=== PATIENT | male | born 1985 | race Caucasian/White ===

== ENCOUNTER 2022-01-30 10:56 | Outpatient (CLI) | payer BC | END 2022-01-30 10:57 | disposition EMS.NT | LOC: EMS 10:56 | DX: R42 Dizziness and giddiness (principal); Z94.0 Kidney transplant status ==

== ENCOUNTER 2022-08-18 19:45 | Emergency (ER) | payer MEDICARE, BC ==
--- NOTE | 2022-08-18 20:13 | ED Physician Documentation ---
History of Present Illness - Stated complaint Stated Complaint: CHEST PX/BACK PX - Chief complaint Chief Complaint: General - Additonal information Additional information: 37-year-old male presents to the emergency department for evaluation of right- sided chest pain and chest pressure. He has a history of renal transplant in 2019. Historically he had an AV fistula in his left lower forearm. Today while at work he accidentally banged his left arm forcefully on some pipe venting. About 430 this afternoon he developed some chest pain, pressure and diaphoresis. He is unsure if hitting the fistula is contributory to the chest pain. However he states that about 9 months ago the fistula collapsed and he lost the thrill. Patient is followed by [facility] nephrology. PD PAST MEDICAL HISTORY - Past Medical History Past Medical History: Yes - Past Surgical History Past Surgical History: Yes - Allergies Allergies/Adverse Reactions: Allergies Allergy/AdvReac Type Severity Reaction Status Date / Time No Known Drug Allergies Allergy Verified 08/18/22 19:56 - Social History Does the pt smoke?: No Smoking Status: Never smoker Does the pt drink ETOH?: No Does the pt have substance abuse?: No - Immunizations Immunizations are current?: Yes PD ED PE NORMAL - General General: Alert and oriented X 3, No acute distress - HEENT HEENT: Atraumatic - Cardiac Cardiac: RRR, Strong equal pulses. No: No murmur (3/6 systolic murmur) - Respiratory Respiratory: No respiratory distress, Clear bilaterally - Abdomen Abdomen: Normal bowel sounds, Soft, Non tender - Extremities Extremities: No deformity, No tenderness to palpate, Normal ROM s pain, Other (No bruit or thrill is felt on the left lower forearm at the site of the fistula. 2+ radial pulse. Neurovascularly intact. Normal movement of the hand wrist and forearm) - Neuro Neuro: Alert and oriented X 3, systems auditor 2-12 intact Eye Opening: Spontaneous Motor: Obeys Commands Verbal: Oriented GCS Score: 15 Results - Vitals Vitals: Vital Signs - 24 hr 08/18/22 19:51 Temperature 36.4 C L Heart Rate 81 Respiratory 21 Rate Blood Pressure 161/94 H O2 Saturation 96 Oxygen O2 Source Room air - EKG (time done) 2023 EKG releavant findings:: EKG personally interpreted by author of this note. Relevant findings are: Rate: Rate (enter#) (85) Rhythm: NSR [place]: Normal Intervals: Normal [place]. No: Prolonged QT QRS: Normal Ischemia: ST elevation c/w repol Compare to prior EKG: Old EKG unavailable Computer interpretation: Agree with computer - Labs Labs: Laboratory Tests 08/18/22 08/18/22 08/18/22 20:26 20:26 20:26 WBC 7.4 RBC 5.62 Hgb 17.3 Hct 50.3 MCV 89.5 MCH 30.8 MCHC 34.4 RDW 12.3 Plt Count 258 MPV 10.5 Neut # (Auto) 4.5 Lymph # (Auto) 2.0 [place] # (Auto) 0.6 Eos # (Auto) 0.1 Baso # (Auto) 0.1 Absolute Nucleated RBC 0.00 Nucleated RBC % 0.0 PT 10.7 INR 1.0 D-Dimer Cancelled Sodium 138 Potassium 4.4 Chloride 103 Carbon Dioxide 28 Anion Gap 7.0 BUN 23 H Creatinine 1.3 H Estimated GFR (MDRD) 62 L Glucose 181 H Calcium 10.2 Total Bilirubin 1.3 H AST 33 ALT 42 Alkaline Phosphatase 118 Troponin I High Sens Total Protein 7.2 Albumin 4.5 Globulin 2.7 Albumin/Globulin Ratio 1.7 Lipase 38 08/18/22 20:26 WBC RBC Hgb Hct MCV MCH MCHC RDW Plt Count MPV Neut # (Auto) Lymph # (Auto) [place] # (Auto) Eos # (Auto) Baso # (Auto) Absolute Nucleated RBC Nucleated RBC % PT INR D-Dimer Sodium Potassium Chloride Carbon Dioxide Anion Gap BUN Creatinine Estimated GFR (MDRD) Glucose Calcium Total Bilirubin AST ALT Alkaline Phosphatase Troponin I High Sens 8.5 Total Protein Albumin Globulin Albumin/Globulin Ratio Lipase - Rads (name of study) cxr Relevant Findings:: EMP independent interpretation of test (No acute cardiopulmonary process) PD Medical Decision Making - ED course Complexity details: reviewed results, re-evaluated patient, considered differential, d/w patient ED course: 37-year-old male presented to the emergency department for evaluation of right- sided chest pain and pressure that began about 430 this afternoon. He did endorse some pain with deep breaths. Patient has past medical history most significant for bilateral renal transplants for which she is taking immune suppressants. On presentation to the emergency department he is alert and well-appearing. He does endorse some mild pain at rest. He was placed on monitor technician and found to be in sinus rhythm. Room air saturations were normal. He appeared to be in no distress. We did obtain a CBC, electrolytes and high-sensitivity troponin. Do see a very mild increase in his BUN and creatinine though given the history of renal transplant and a normal GFR this is likely his baseline. There are no previous labs for comparison. His EKG is interpreted by myself shows no ischemic findings. High-sensitivity troponin obtained 4 hours after the onset of pain was also negative. Chest x- ray showed no findings to suggest pneumonia, pneumothorax or pleural effusion. I discussed with patient and his the possibility that this pleuritic component of chest pain could be due to a pulmonary embolism. I initially offered D-dimer testing. However unfortunately the patient was found to be too lipemic in order for us to complete the D-dimer In our laboratory today. However the patient's pretest probability for a PE was felt to be low based on Wells and PERC criteria. I did have a lengthy discussion with patient and his at the bedside about simply obtaining a CT angio to formally rule out a PE but after discussion the patient felt that this was not necessary today and he would like to be discharged home. We discussed that if the symptoms were to suddenly worsen or not improve he would return immediately to the ER. I discussed the concerning finding of the lipemia inhibiting her ability to obtain a D-dimer and recommended he have triglycerides checked as an outpatient. I also made the recommendation for outpatient stress test and echocardiogram given he is high risk for early coronary artery disease in the setting of immune suppression. He is discharged home in stable condition Departure - Departure Disposition: 01 Home, Self Care Clinical Impression: History of renal transplant Chest pain Qualifiers: Chest pain type: unspecified Qualified Code(s): R07.9 - Chest pain, unspecified Follow-Up: TRIPP DON DO [Primary Care Provider] - Comments: As discussed at the bedside you came to the emergency department today because you developed some chest pain on the right side of your chest. Your EKG today did not show any worrisome findings. Your troponin, chemical that can be released during heart attacks was also normal. Your chest x-ray showed no signs of pneumonia, cardiac enlargement or fluid around the lungs. We did discuss the possibility of pulmonary embolism as a cause of your chest pain. We attempted to run a lab called a D-dimer which can help providers assess the risk of you developing abnormal blood clots. Our pre- test probability of you having a pulmonary embolus was however felt to be low. However this lab could not be completed in the emergency department as lab rhetorically personnel noted that your triglyceride levels were too high and it interfered with reading of this lab. This does indicate that you have elevated triglycerides in your blood. It is important you follow closely with your primary care provider. You should obtain outpatient triglyceride testing as well as referral to a dairy tester for stress test and/or echocardiogram. If at any point you feel that your symptoms are worsening do not hesitate to return to the emergency department.
[2022-08-18 20:50] LABS: PT - PROTHROMBIN TIME 10.7 secs (9.9-12.6)
[2022-08-18 20:53] LABS: ALBUMIN 4.5 g/dL (3.2-5.5); ALBUMIN/GLOBULIN RATIO 1.7 (1.0-2.2); BILIRUBIN,TOTAL 1.3 mg/dL (0.2-1.0); CALCIUM 10.2 mg/dL (8.5-10.3); CREATININE 1.3 mg/dL (0.6-1.2); POTASSIUM 4.4 mmol/L (3.5-5.0); TOTAL PROTEIN 7.2 g/dL (6.7-8.2)
[2022-08-18 20:54] LABS: BASOPHILS # (AUTO) 0.1 10^3/uL (0.0-0.1); BASOPHILS % (AUTO) 0.7 %; EOSINOPHILS # (AUTO) 0.1 10^3/uL (0.0-0.7); EOSINOPHILS % (AUTO) 1.6 %; HCT - HEMATOCRIT 50.3 % (42.0-52.0); HGB - HEMOGLOBIN 17.3 g/dL (14.0-18.0); LYMPHOCYTES % (AUTO) 27.3 %; MEAN CORPUSCULAR HEMOGLOBIN 30.8 pg (27.0-31.0); MEAN CORPUSCULAR HGB CONC 34.4 g/dL (32.0-36.0); MEAN CORPUSCULAR VOLUME 89.5 fL (80.0-94.0); MEAN PLATELET VOLUME 10.5 fL (7.4-11.4); MONOCYTES # (AUTO) 0.6 10^3/uL (0.0-1.0); MONOCYTES % (AUTO) 8.3 %; NEUTROPHILS # (AUTO) 4.5 10^3/uL (1.5-6.6); NEUTROPHILS % (AUTO) 61.6 %; PLT - PLATELET COUNT 258 10^3/uL (130-450); RED BLOOD COUNT 5.62 10^6/uL (4.70-6.10); RED CELL DISTRIBUTION WIDTH 12.3 % (12.0-15.0); WHITE BLOOD COUNT 7.4 x10^3/uL (4.8-10.8)
--- NOTE | 2022-08-18 21:02 | XRAY Report ---
PROCEDURE: Chest 1 View X-Ray INDICATIONS: Chest Pain TECHNIQUE: One view of the chest was acquired. COMPARISON: None. FINDINGS: Surgical changes and devices: None. Lungs and pleura: No pleural effusions or pneumothorax. Lungs are clear. Low lung volumes. Mediastinum: Mediastinal contours appear normal. Heart size is normal. Bones and chest wall: No suspicious bony lesions. Overlying soft tissues appear unremarkable. IMPRESSION: No acute radiographic abnormality. Slightly low lung volumes. Reviewed by: Andreas Newby MD on 08/18/2022 9:01 PM PDT Approved by: Andreas Newby MD on 08/18/2022 9:01 PM PDT Station ID: [id number]
[2022-08-18 21:59] VITALS: BP 154/69
== END 2022-08-18 21:59 | disposition home or self-care (01) ==
LOC: ED 19:45
DX: R07.9 Chest pain, unspecified (principal); E78.1 Pure hyperglyceridemia; D84.9 Immunodeficiency, unspecified; Z94.0 Kidney transplant status
CPT/HCPCS: 36415; 80053; 83690; 84484; 85025; 85379; 85610; 93005; 99284

== ENCOUNTER 2023-01-16 15:00 | Outpatient (CLI) | payer BC, MEDICARE ==
[2023-01-16 21:42] LABS: CHLAMYDIA TRACHOMATIS DNA NEGATIVE (NEGATIVE); NEISSERIA GONORRHOEAE DNA NEGATIVE (NEGATIVE); TRICHOMONAS VAGINALIS DNA NEGATIVE (NEGATIVE)
== END 2023-01-16 15:15 | disposition home or self-care (01) ==
LOC: LAB.N 15:00
PROVIDERS: ATTEND Physician Assistant Medical
DX: Z11.3 Encounter for screening for infections with a predominantly sexual mode of transmission (principal)
CPT/HCPCS: 87491; 87591; 87661